=== PATIENT | female | born 1970 | race American Indian/Alaskan Native ===

== ENCOUNTER 2020-05-29 09:00 | Outpatient (CLI) | payer BC ==
[2020-05-29 09:30] LABS: Hemoglobin 13.4 gm/dl (10.1-14.3); Mean Corpuscular HGB Conc 34 % (30-34); Mean Corpuscular Volume 93 fl (79-97); Platelet Count 396 K/mm3 (140-440); Red Blood Count 4.17 M/mm3 (3.65-5.03); Red Cell Distribution Width 13.8 % (13.2-15.2)
[2020-05-29 10:17] LABS: Alanine Aminotransferase 19 units/L (7-56); Albumin 4.9 g/dL (3.9-5); BUN/Creatinine Ratio 18; Blood Urea Nitrogen 16 mg/dL (7-17); Calcium 9.6 mg/dL (8.4-10.2); Hemolysis Index 3
[2020-05-29 15:22] LABS: Hepatitis C Virus Antibody Non-Reactive (NonReactive)
[2020-05-30 16:12] LABS: Chol/HDL Ratio 4.03 %; HDL Cholesterol 64 mg/dL (40-59); LDL Cholesterol,Direct 183 mg/dL (50-130)
== END 2020-05-29 09:01 | disposition home or self-care (01) ==
LOC: LAB 09:00
PROVIDERS: ATTEND Obstetrics & Gynecology
DX: Z13.220 Encounter for screening for lipoid disorders (principal); Z13.21 Encounter for screening for nutritional disorder; Z13.29 Encounter for screening for other suspected endocrine disorder; Z13.0 Encounter for screening for diseases of the blood and blood-forming organs and certain disorders involving the immune mechanism; Z11.3 Encounter for screening for infections with a predominantly sexual mode of transmission
CPT/HCPCS: 36415; 80053; 80061; 82306; 83036; 84443; 85027; 86592; 86689; 86706; 86803

== ENCOUNTER 2020-06-05 08:08 | Outpatient (CLI) | payer BC ==
--- NOTE | 2020-06-12 09:23 | Mammography Report ---
BILATERAL DIGITAL DIAGNOSTIC MAMMOGRAM WITH CAD , 06/05/2020 LEFT LIMITED BREAST ULTRASOUND CLINICAL INFORMATION / INDICATION: There is a slight indentation on the skin lateral to the left nipp le. TECHNIQUE: Digital bilateral mammographic imaging was performed. Limited ultrasound was performed. Th is examination was interpreted with the benefit of Computer-Aided Detection (CAD) analysis. COMPARISON: Prior mammograms, 09/06/2019, 01/28/2018, 06/05/2016 FINDINGS: Breast Density: The breasts are heterogeneously dense, which may obscure small masses. MAMMOGRAPHIC FINDINGS: No dominant mass, suspicious calcifications, or architectural distortion in ei ther breast. Bilateral scarring consistent with patient's history of reduction mammoplasty is present . Overall, the mammogram is unchanged. No mammographic correlate for the complaint of left lateral br east skin changes/indentation. ULTRASOUND FINDINGS: Targeted ultrasound evaluation was performed of the area of interest. Sonograp hic evaluation of the lateral left breast adjacent to the nipple does not reveal any abnormal finding . There is no suggestion of mass, focal suspicious shadowing, or cyst. IMPRESSION: No mammographic evidence for malignancy within either breast. More specifically no mammog raphic or sonographic findings in the left lateral breast to account for the stated issue of indentat ion of the skin lateral to the left nipple. Follow up recommendation: Clinical correlation with respect to skin changes lateral to the left nippl e. BI-RADS Category 2: Benign. A "normal" or negative report should not discourage follow up or biopsy of a clinically significant f inding. A written summary of these findings will be mailed to the patient. The patient will be entered into a mammography reporting system which will generate a reminder letter for the patient's next appointmen t at the appropriate interval. According to the [employer], yearly mammograms are recommended starting at age 40 and continuing as long as a woman is in good health. Breast MRI is recommended for women with an salbador roximately 20-25% or greater lifetime risk of breast cancer, including women with a strong family his tory of breast or ovarian cancer and women who have been treated for Hodgkin's disease. Signer Name: Bonny Oquendo MD Signed: 06/12/2020 9:18 AM Workstation Name: [id number]
--- NOTE | 2020-06-13 09:20 | Ultrasound Report ---
please see combined report for bilateral mammogram and left breast ultrasound for detailed report Signer Name: Bonny Oquendo MD Signed: 06/13/2020 9:15 AM Workstation Name: [id number]
== END 2020-06-05 08:09 | disposition home or self-care (01) ==
LOC: MAMMO 08:08
PROVIDERS: ATTEND Obstetrics & Gynecology
DX: N64.4 Mastodynia (principal)
CPT/HCPCS: 77066

== ENCOUNTER 2020-10-20 09:38 | Outpatient (CLI) | payer BC ==
[2020-10-20 10:24] LABS: Alanine Aminotransferase 20 units/L (7-56); Albumin 4.7 g/dL (3.9-5); BUN/Creatinine Ratio 24; Blood Urea Nitrogen 22 mg/dL (7-17); Calcium 9.7 mg/dL (8.4-10.2); Chol/HDL Ratio 3.13 %; HDL Cholesterol 60 mg/dL (40-59); Hemolysis Index 6; LDL Cholesterol,Direct 121 mg/dL (50-130)
[2020-10-24 11:00] LABS: Vitamin D, 25-OH, D2 <4 ng/mL
== END 2020-10-20 09:39 | disposition home or self-care (01) ==
LOC: LAB 09:38
PROVIDERS: ATTEND Internal Medicine
DX: Z13.1 Encounter for screening for diabetes mellitus (principal); R79.89 Other specified abnormal findings of blood chemistry; E78.5 Hyperlipidemia, unspecified
CPT/HCPCS: 36415; 80053; 80061; 82306; 83036